=== PATIENT | female | born 1970 | race Caucasian/White ===

== ENCOUNTER 2018-06-21 06:06 | Day surgery (SDC) | payer BC, OTHER ==
[~2018-06-21] VITALS: Ht 172.7 cm; Wt 68.8 kg
[2018-06-21 06:33] VITALS: Ht 172.7 cm; Wt 68.8 kg
[2018-06-21] MEDS ORDERED: RANI150T35 PO (06:41)
[2018-06-21] MEDS ORDERED: LEVO150T64 PO (06:41)
[2018-06-21 07:27] VITALS: BP 100/61; PULSE 72; RESP 20
[2018-06-21 08:20] VITALS: BP 107/69; PULSE 62; RESP 12
[2018-06-21] MEDS ORDERED: MIDAZOLAM 1 MG/ML 2 ML INJ ONE ×2 (08:35)
[2018-06-21] MEDS ORDERED: FENTAnyl 50 MCG/ML VIAL ONE (08:35)
--- NOTE | 2018-06-21 12:04 | CONS ---
DATE OF ADMISSION: 06/21/2018 DATE OF CONSULTATION: PATIENT NAME: CHING FITZGERALD TYPE OF CONSULTATION: Preoperative gastroenterology. Dear Dr. Sharma: I thank you very much for this kind referral. HISTORY OF PRESENT ILLNESS: Ms. Sandy Fitzgerald is a 48-year-old female patient who has been referred to me for further evaluation of upper abdominal pain associated with bloating. She also has got chroni c gastroesophageal reflux disease with burping. She took omeprazole without any help and right now, she is taking Zantac. Her appetite has been poor and she has been losing weight. She is not taking any nonsteroidal anti-inflammatory agents. No history of gallstones or liver disease. The patient h ad abdominal ultrasound and CT scan done and according to her, they were normal. She denies any killian ge in the bowel habit or rectal bleeding. No past history of colon neoplasm. The patient never had screening colonoscopy. Not a hypertensive or diabetic. No heart disease, lung problem or kidney dis ease. PAST MEDICAL HISTORY: She has got hypothyroidism. The patient is status post laparoscopic surgery f or ovarian fibroids. SOCIAL HISTORY: Nonsmoker. No alcohol abuse. FAMILY HISTORY: No family history of gastrointestinal tract neoplasm. ALLERGIES: NO DRUG ALLERGIES. MEDICATIONS: 1. Zantac 150 mg p.o. b.i.d. 2. Levothyroxine 150 mcg. PHYSICAL EXAMINATION: VITAL SIGNS: She is 5 feet, 8 inches tall and weighs 152 pounds. HEART: Normal heart sounds. LUNGS: Clear. ABDOMEN: Soft. No masses. Normal bowel sounds. NEUROLOGIC: Normal. IMPRESSION: 1. Upper abdominal pain associated with bloating. 2. Chronic heartburn and burping. 3. The patient was taking omeprazole without relief and now she has been taking Zantac. 4. Weight loss. 5. The patient had abdominal ultrasound and CT scan done and according to her, they were normal. 6. Hypothyroidism. 7. Status post laparoscopic surgery for ovarian fibroid. PLAN: Endoscopy for further evaluation. The procedure and possible complications are well explained to the patient. She understands and cons ents to the procedure. I thank you once again. With warmest personal regards, Dictated By: SOHAN JACOBS/TONY Conf#: [id number] DID#: [id number]
== END 2018-06-21 15:16 | disposition home or self-care (01) ==
LOC: GIL 06:06
PROVIDERS: ATTEND Internal Medicine Gastroenterology
DX: K29.30 Chronic superficial gastritis without bleeding (principal); K21.9 Gastro-esophageal reflux disease without esophagitis; E03.9 Hypothyroidism, unspecified
CPT/HCPCS: 43239; 84703; 88305; 88312; J2250; J3010; Z7610